=== PATIENT | female | born 1965 | race Caucasian/White ===

== ENCOUNTER 2018-10-25 07:37 | Emergency (ER) | payer SELFPAY ==
[2018-10-25 08:13] LABS: #Basophils 0.1 thou/uL (0.0-0.2); #Eosinphils 0.6 thou/uL (0.0-0.7); #Lymphocytes 2.2 thou/uL (1.20-3.40); #Monocytes 0.5 thou/uL (0.11-0.59); #Neutrophils 6.3 thou/uL (1.40-6.50); %Basophils 0.6 % (0.0-1.0); %Eosinophils 6.3 % (0.0-10.0); %Lymphocytes 22.7 % (21.0-51.0); %Monocytes 5.4 % (0.0-10.0); %Neutrophils 64.9 % (42.0-75.0); Hemoglobin 14.6 g/dL (12.0-16.0); Mean Corpuscular HGB CONC 35.1 g/dL (32.0-36.0); Mean Corpuscular Hemoglobin 34.7 pg (27.0-31.0); Platelet Count 272 thou/uL (130-400); RBC Distribution Width 11.4 % (11.5-14.5); Red Blood Cell (RBC) Count 4.19 mill/uL (4.20-5.40); White Blood Cell (WBC) Count 9.8 thou/uL (4.8-10.8)
[2018-10-25] MEDS ORDERED: methylPREDNISolone Sod Succ/PF 125 MG/2 ML VIAL ONE (08:33)
[2018-10-25] MEDS ORDERED: Azithromycin 500 MG VIAL ONE (08:33)
[2018-10-25] MEDS ORDERED: cefTRIAXone\\ROCEPHIN 1 GM VIAL ONE (08:33)
[2018-10-25 08:37] LABS: ALT (SGPT) 17 U/L (8-55); AST (SGOT) 16 U/L (5-34); Albumin 4.2 g/dL (3.5-5.0); Alkaline Phosphatase 87 U/L (40-150); Anion Gap 14 mmol/L (10-20); BUN (Urea Nitrogen) 12 mg/dL (9.8-20.1); Bilirubin, Total 0.8 mg/dL (0.2-1.2); CK (CPK) 73 U/L (29-168); Calc. Creatinine Clearance 0 mL/min (70-130); Calcium 9.3 mg/dL (7.8-10.44); Carbon Dioxide 21 mmol/L (22-29); Chloride 107 mmol/L (98-107); Estimated GFR-MDRD 75; Globulin 2.5 g/dL (2.4-3.5); Glucose 104 mg/dL (70-105); Potassium 4.3 mmol/L (3.5-5.1); Protein, Total 6.7 g/dL (6.0-8.3); Sodium 138 mmol/L (136-145)
--- NOTE | 2018-10-25 08:42 | RAD ---
PORTABLE CHEST: HISTORY: Cough. FINDINGS: The lung monge are clear. Heart and mediastinum appear normal. Vasculature normal. IMPRESSION: No acute finding. POS: OFF
[2018-10-25] MEDS ORDERED: Ondansetron PF 4 MG/2 ML Vial ONE (09:26)
== END 2018-10-25 10:25 | disposition home or self-care (01) ==
LOC: ERS 07:37
DX: J44.1 Chronic obstructive pulmonary disease with (acute) exacerbation (principal); J20.9 Acute bronchitis, unspecified; J44.0 Chronic obstructive pulmonary disease with (acute) lower respiratory infection; F17.210 Nicotine dependence, cigarettes, uncomplicated; Z71.6 Tobacco abuse counseling
CPT/HCPCS: 36415; 71045; 80053; 82550; 83605; 83880; 84484; 85025; 87040; 94640; 96365; 96367; 96375; 99406; J0456; J0696; J2405; J2930; J7620

== ENCOUNTER 2019-03-12 02:16 | Inpatient (IN) | payer SELFPAY ==
[2019-03-12 03:43] LABS: Troponin I Less than 0.010 ng/mL (< 0.028)
[2019-03-12 03:51] VITALS: BMI 34.4
[2019-03-12 07:16] LABS: Troponin I Less than 0.010 ng/mL (< 0.028)
[2019-03-12] MEDS ORDERED: predniSONE 20 MG TAB PO SCH (11:53)
[2019-03-12] MEDS ORDERED: methylPREDNISolone Sod Succ 40 MG VIAL IVP SCH (12:00)
[2019-03-12] MEDS: Ipratropium Bromide 2.5 ml Neb NEB SCH ×3 (13:01→22:37)
[2019-03-12] MEDS: Nicotine 21 MG PATCH TD SCH (18:35)
[2019-03-12] MEDS: Famotidine 20 MG TAB PO SCH (20:03)
[2019-03-12] MEDS ORDERED: FLU VACC QS2019-20(6MOS UP)/PF 60 MCG/0.5 ML SYRINGE IM ONE (21:00)
--- NOTE | 2019-03-12 23:42 | HP ---
CHIEF COMPLAINT: Shortness of breath. HISTORY OF PRESENT ILLNESS: The patient is a very pleasant 53-year-old female with a history of smoking, who presented to the hospital with worsening shortness of breath. The patient stated that she did go to the ER on Friday for shortness of breath and was given some medication, which improved her shortness of breath. However, last night her symptoms worsened, so she came in to the hospital for further evaluation. The patient states that she has been having a cough with some mild sputum. Denies any fevers or chills. Denies any chest tightness. PAST MEDICAL HISTORY: As of the following. She has a history of vertigo. Also, there is a questionable history of COPD, however, she has never had a PFT done. She does have a significant history of smoking and also has significant abnormal chest x-ray. PAST SURGICAL HISTORY: She has had left arm surgery. SOCIAL HISTORY: She smokes a pack a day. She just quit about 2 days ago. She occasionally smokes marijuana. No alcohol use and she is a full code. ALLERGIES: SHE IS ALLERGIC TO MORPHINE. SHE GETS A HEADACHE. MEDICATIONS: She is currently normal. She does not take any medications. However, she was prescribed some ProAir. PHYSICAL EXAMINATION: VITAL SIGNS: As of the following; temperature of 97.9, heart rate 82, respirations 16, O2 saturation 95% on room air, blood pressure 136/77. GENERAL: She is awake, alert, and oriented x2. Does not appear in any distress. HEENT: Normocephalic, atraumatic. No lymphadenopathy noted. Pupils are equal and reactive to light. CV: S1 and S2 present. No murmurs, rubs, or gallops. LUNGS: Clear have significant rhonchi and wheezing all over. ABDOMEN: Soft and nontender. Bowel sounds are present x2. EXTREMITIES: No edema. Pedal pulses are present x2. NEUROVASCULAR: No focal deficits noted. SKIN: No cuts, lesions, or bruises noted. FAMILY HISTORY: No history of heart disease or cancer. LABORATORY DATA: As of the following. WBCs of 12.4, hemoglobin of 14.1, hematocrit of 42.5, platelets of 277. Chemistry; sodium of 141, potassium of 3.5, BUN of 12, creatinine 0.76. Troponins x3 are negative. BNP in October was 16.6. Her chest x-ray upon reviewing appears to be hyperinflated lungs; however, chest x-ray appears to be pretty normal. ASSESSMENT AND PLAN: The patient is a very pleasant 53-year-old female who presents to the hospital with complaints of shortness of breath. 1. Acute hypoxic respiratory failure, most likely secondary to underlying chronic obstructive pulmonary disease exacerbation. I will start her on some DuoNeb and also some steroids and also prophylactic antibiotics and continue to monitor. 2. Chronic obstructive pulmonary disease exacerbation. The patient has never had a PFT, however, most likely she does due to her hyperinflated lungs and also her history of smoking. I have advised her to follow up with her primary and then she will need inhalers on discharge. 3. Mild leukocytosis, most likely secondary to her underlying symptoms currently versus that she was recently on steroids. 4. Deep venous thrombosis prophylaxis. We will put patient on Lovenox. Job ID: [id number]
[2019-03-13] MEDS: Ipratropium Bromide 2.5 ml Neb NEB SCH ×6 (02:38→22:18)
[2019-03-13] MEDS: Acetaminophen 325 MG TAB PO PRN ×3 (04:47→20:19)
[2019-03-13] MEDS: Diabetic Tussin 200 MG/10 ML UDCUP PO PRN ×2 (04:48→16:33)
[2019-03-13 05:25] LABS: #Eosinphils 0.1 thou/uL (0.0-0.7); #Lymphocytes 3.3 thou/uL (1.20-3.40); #Monocytes 0.9 thou/uL (0.11-0.59); #Neutrophils 11.2 thou/uL (1.40-6.50); %Basophils 0.3 % (0.0-1.0); %Eosinophils 0.4 % (0.0-10.0); %Lymphocytes 21.2 % (21.0-51.0); %Monocytes 5.6 % (0.0-10.0); %Neutrophils 72.5 % (42.0-75.0); Hemoglobin 13.4 g/dL (12.0-16.0); Mean Corpuscular HGB CONC 33.8 g/dL (32.0-36.0); Mean Corpuscular Hemoglobin 34.4 pg (27.0-31.0); Mean Platelet Volume 6.8 fL (7.4-10.4); Platelet Count 270 thou/uL (130-400); RBC Distribution Width 11.8 % (11.5-14.5); White Blood Cell (WBC) Count 15.4 thou/uL (4.8-10.8)
[2019-03-13 05:47] LABS: Anion Gap 11 mmol/L (10-20); BUN (Urea Nitrogen) 9 mg/dL (9.8-20.1); Calc. Creatinine Clearance 106 mL/min (70-130); Calcium 9.4 mg/dL (7.8-10.44); Carbon Dioxide 24 mmol/L (22-29); Chloride 107 mmol/L (98-107); Estimated GFR-MDRD 74; Glucose 122 mg/dL (70-105); Sodium 138 mmol/L (136-145)
[2019-03-13] MEDS: Famotidine 20 MG TAB PO SCH ×2 (08:14→20:16)
[2019-03-13] MEDS: Enoxaparin Sodium 40 MG/0.4 ML SYRINGE SC SCH (08:14)
[2019-03-13] MEDS: methylPREDNISolone Sod Succ 40 MG VIAL IVP SCH (08:15)
[2019-03-13] MEDS: Nicotine 21 MG PATCH TD SCH (17:18)
--- NOTE | 2019-03-13 18:05 | PDOC.HOSPP ---
- Subjective Encounter Date: 03/13/19 Encounter Time: 13:45 Subjective: Ms. Craft was seen today in follow-up of acute respiratory failure. She says she sontinues to feel congestion in her chest, and has trouble bringing up the phlem. - Objective Vital Signs & Weight: Vital Signs (12 hours) Temp Pulse Resp BP Pulse Ox 03/13/19 16:27 98.3 F 87 18 125/79 94 L 03/13/19 14:57 75 14 03/13/19 11:36 98.4 F 75 18 110/68 94 L 03/13/19 10:53 80 14 03/13/19 08:00 92 L 03/13/19 07:47 97.2 F L 79 18 113/75 92 L 03/13/19 07:07 85 14 97 Weight Weight 182 lb I&O: 03/12/19 03/13/19 03/14/19 06:59 06:59 06:59 Intake Total 061 667 7334 Balance 432 208 8329 Result Diagrams: 03/13/19 05:10 03/13/19 05:10 Hospitalist ROS - Medication Medications: Active Medications Generic Name Dose Route Start Last Admin Trade Name Freq PRN Reason Stop Dose Admin Acetaminophen 650 mg 03/12/19 17:31 03/13/19 10:04 Tylenol PO 650 mg Q4H PRN Administration Headache/Fever/Mild Pain (1-3) Enoxaparin Sodium 40 mg 03/13/19 09:00 03/13/19 08:14 Lovenox SC 40 mg 0900 MELI Administration Famotidine 20 mg 03/12/19 21:00 03/13/19 08:14 Pepcid PO 20 mg BID MELI Administration Guaifenesin 100 mg 03/13/19 04:37 03/13/19 16:33 Robitussin Sf PO 100 mg Q8H PRN Administration Cough Ipratropium [place] 2.5 ml 03/12/19 14:30 03/13/19 14:57 Atrovent NEB 2.5 ml [id number] MELI Administration Levofloxacin 750 mg 03/12/19 12:00 03/13/19 11:24 Levaquin PO 750 mg 1200 MELI Administration Methylprednisolone Sodium Succinate 40 mg 03/13/19 09:00 03/13/19 08:15 Solu-Medrol IVP 40 mg DAILY MELI Administration Nicotine 21 mg 10/04/19 18:00 03/13/19 17:18 Nicoderm Patch TD 21 mg 1800 MELI Administration - Exam Eye: PERRL, anicteric sclera Heart: RRR, no murmur, no gallops, no rubs, normal peripheral pulses Respiratory: no rales, no ronchi, wheezes (bilateral wheezing, mild) Gastrointestinal: soft, non-tender, non-distended, normal bowel sounds, no palpable masses, no hepatomegaly, no splenomegaly Extremities: no cyanosis, no clubbing, no edema Psychiatric: normal affect, normal behavior, A&O x 3 Hosp A/P (1) Acute and chronic respiratory failure Code(s): J96.20 - ACUTE AND CHR RESP FAILURE, UNSP W HYPOXIA OR HYPERCAPNIA Status: Acute (2) Tobacco abuse Code(s): Z72.0 - TOBACCO USE Status: Acute - Plan * Acute on chronic respiratory failure- due to presumed COPD- continue Duonebs, steroids, and Levaquin * Will re-assess in [place] AM * Discussed smoking cessation * Anticipate home tomorrow
[2019-03-14] MEDS: Ipratropium Bromide 2.5 ml Neb NEB SCH ×4 (02:29→13:26)
[2019-03-14] MEDS: Acetaminophen 325 MG TAB PO PRN (06:10)
[2019-03-14] MEDS: Enoxaparin Sodium 40 MG/0.4 ML SYRINGE SC SCH (08:36)
[2019-03-14] MEDS: Famotidine 20 MG TAB PO SCH (08:36)
[2019-03-14] MEDS: methylPREDNISolone Sod Succ 40 MG VIAL IVP SCH (08:38)
[2019-03-14 11:21] VITALS: BP 123/85; TEMP 98.2
--- NOTE | 2019-03-14 11:53 | PDOC.HOSPP ---
- Subjective Encounter Date: 03/14/19 Encounter Time: 11:52 Subjective: Ms. Craft was seen today in follow-up of COPD exacerbation. She says she is feeling much better. She does not have any new complaints. - Objective Vital Signs & Weight: Vital Signs (12 hours) Temp Pulse Resp BP Pulse Ox 03/14/19 11:19 98.2 F 81 18 123/85 97 03/14/19 10:28 79 16 96 03/14/19 08:00 93 L 03/14/19 07:23 97.6 F 86 13 115/79 93 L 03/14/19 06:31 83 16 95 03/14/19 02:29 74 14 96 Weight Weight 182 lb I&O: 03/13/19 03/14/19 03/15/19 06:59 06:59 06:59 Intake Total 240 1615 Balance 240 1615 Result Diagrams: 03/13/19 05:10 03/13/19 05:10 Hospitalist ROS - Medication Medications: Active Medications Generic Name Dose Route Start Last Admin Trade Name Freq PRN Reason Stop Dose Admin Acetaminophen 650 mg 03/12/19 17:31 03/14/19 06:10 Tylenol PO 650 mg Q4H PRN Administration Headache/Fever/Mild Pain (1-3) Enoxaparin Sodium 40 mg 03/13/19 09:00 03/14/19 08:36 Lovenox SC 40 mg 0900 MELI Administration Famotidine 20 mg 03/12/19 21:00 03/14/19 08:36 Pepcid PO 20 mg BID MELI Administration Guaifenesin 100 mg 03/13/19 04:37 03/13/19 16:33 Robitussin Sf PO 100 mg Q8H PRN Administration Cough Ipratropium [place] 2.5 ml 03/12/19 14:30 03/14/19 10:28 Atrovent NEB 2.5 ml [id number] MELI Administration Levofloxacin 750 mg 03/12/19 12:00 03/14/19 11:14 Levaquin PO 750 mg 1200 MELI Administration Methylprednisolone Sodium Succinate 40 mg 03/13/19 09:00 03/14/19 08:38 Solu-Medrol IVP 40 mg DAILY MELI Administration Nicotine 21 mg 03/12/19 18:00 03/13/19 17:18 Nicoderm Patch TD 21 mg 1800 MELI Administration - Exam Eye: PERRL, anicteric sclera Heart: RRR, no murmur, no gallops, no rubs, normal peripheral pulses Respiratory: CTAB, no wheezes, no rales, no ronchi, normal chest expansion, no tachypnea, normal percussion Gastrointestinal: soft, non-tender, non-distended, normal bowel sounds, no palpable masses, no hepatomegaly, no splenomegaly, no bruit Extremities: no cyanosis, no clubbing, no edema Hosp A/P (1) Acute and chronic respiratory failure Code(s): J96.20 - ACUTE AND CHR RESP FAILURE, UNSP W HYPOXIA OR HYPERCAPNIA Status: Acute (2) Tobacco abuse Code(s): Z72.0 - TOBACCO USE Status: Acute - Plan * Acute on chronic respiratory failure- due to presumed COPD- much improved * Discussed smoking cessation * Home today
--- NOTE | 2019-03-14 13:26 | DIS ---
DATE OF ADMISSION: 03/12/2019 DATE OF DISCHARGE: 03/14/2019 The patient currently does not have a primary care physician. DISCHARGE DISPOSITION: Home. DISCHARGE DIAGNOSES: 1. Acute on chronic respiratory failure with hypoxemia. 2. Presumed chronic obstructive pulmonary disease exacerbation. 3. Tobacco abuse. DISCHARGE MEDICATIONS: Include; 1. Prednisone 20 mg one p.o. daily for 5 days. 2. Levaquin 500 mg p.o. daily for 5 days. 3. Atrovent nebs q.i.d. as needed. 4. Proventil inhaler 2 puffs q.6 as needed. 5. Also prescription was written for Symbicort inhaler 80/4.5 one puff twice daily and hopefully, the patient can obtain this in the outpatient setting. CODE STATUS: Full code. ALLERGIES: MORPHINE. HOSPITAL COURSE: Ms. Craft is a pleasant 53-year-old female, who presented to the emergency room complaining of cough and shortness of breath. Chest x-ray was negative and it was felt that she likely has COPD. She has a long history of smoking. She was treated with antibiotics, DuoNeb, and steroids and improved over the course of the next couple of days. It is recommended that she get an outpatient pulmonary function test. She was also counseled on the need to stop smoking, and plan is to establish care at a clinic in [place] and has been recommended to follow up there within 1 week. Job ID: [id number]
== END 2019-03-14 14:32 | disposition home or self-care (01) | DRG 189 ==
LOC: ERS 02:16 → 2SW 03:26 → OBSVTOIN 03:26 → T4-B 19:39
PROVIDERS: ADMIT Hospitalist; ATTEND Hospitalist
DX: J96.21 Acute and chronic respiratory failure with hypoxia (principal); J44.1 Chronic obstructive pulmonary disease with (acute) exacerbation; D72.829 Elevated white blood cell count, unspecified; Z87.891 Personal history of nicotine dependence; Z88.5 Allergy status to narcotic agent; Z71.6 Tobacco abuse counseling
CPT/HCPCS: 36415; 80048; 84484; 85025; 87070; 87205; 87633; 87798; 94640; J1650; J2920; J7620

== ENCOUNTER 2020-10-11 14:35 | Emergency (ER) | payer SELFPAY ==
[2020-10-11] MEDS ORDERED: predniSONE 20 MG TAB ONE (17:43)
[2020-10-11] MEDS ORDERED: Ketorolac Tromethamine 30 MG/ML VIAL ONE (17:43)
[2020-10-11] MEDS ORDERED: Albuterol 200 PUFF (6.7GM INHALER) ONE (17:53)
[2020-10-11 17:59] LABS: ALT (SGPT) 33 U/L (8-55); AST (SGOT) 25 U/L (5-34); Alkaline Phosphatase 110 U/L (40-110); Anion Gap 17 mmol/L (10-20); BUN (Urea Nitrogen) 10 mg/dL (9.8-20.1); Bilirubin, Total 1.2 mg/dL (0.2-1.2); CK (CPK) 38 U/L (29-168); Calc. Creatinine Clearance 0 mL/min (70-130); Calcium 9.8 mg/dL (7.8-10.44); Carbon Dioxide 23 mmol/L (22-29); Chloride 104 mmol/L (98-107); Globulin 3.4 g/dL (2.4-3.5); Glucose 104 mg/dL (70-105); Potassium 4.6 mmol/L (3.5-5.1); Protein, Total 7.4 g/dL (6.0-8.3); Sodium 139 mmol/L (136-145)
[2020-10-11 18:00] LABS: #Eosinphils 0.1 thou/uL (0.0-0.7); #Lymphocytes 2.3 thou/uL (1.20-3.40); #Monocytes 0.6 thou/uL (0.11-0.59); #Neutrophils 5.4 thou/uL (1.40-6.50); %Basophils 0.6 % (0.0-1.0); %Eosinophils 0.9 % (0.0-10.0); %Lymphocytes 27.6 % (21.0-51.0); %Monocytes 7.2 % (0.0-10.0); %Neutrophils 63.7 % (42.0-75.0); Hemoglobin 11.9 g/dL (12.0-16.0); Mean Corpuscular HGB CONC 33.2 g/dL (32.0-36.0); Mean Corpuscular Hemoglobin 33.2 pg (27.0-31.0); Mean Platelet Volume 6.4 fL (7.4-10.4); Platelet Count 508 thou/uL (130-400); RBC Distribution Width 11.6 % (11.5-14.5); Red Blood Cell (RBC) Count 3.58 mill/uL (4.20-5.40); White Blood Cell (WBC) Count 8.5 thou/uL (4.8-10.8)
== END 2020-10-11 18:49 | disposition home or self-care (01) ==
LOC: ERS 14:35
DX: M79.622 Pain in left upper arm (principal); M79.621 Pain in right upper arm; J44.1 Chronic obstructive pulmonary disease with (acute) exacerbation; F17.210 Nicotine dependence, cigarettes, uncomplicated; Z79.899 Other long term (current) drug therapy
CPT/HCPCS: 36415; 71045; 80053; 82550; 84484; 85025; 93005; 96372; J1885; J7512

== ENCOUNTER 2021-05-07 12:05 | Outpatient (CLI) | payer OTHER | END 2021-05-07 12:06 | disposition home or self-care (01) | LOC: BICMRI 12:05 | PROVIDERS: ATTEND Orthopaedic Surgery | DX: M47.812 Spondylosis without myelopathy or radiculopathy, cervical region (principal); M48.02 Spinal stenosis, cervical region | CPT/HCPCS: 72141 ==

== ENCOUNTER 2021-06-20 15:30 | Outpatient (CLI) | payer OTHER ==
[2021-06-20 16:30] LABS: Hemoglobin 8.2 g/dL (12.0-15.5); Mean Corpuscular HGB CONC 29.3 g/dL (32.0-36.0); Mean Corpuscular Hemoglobin 29.2 pg (27.0-33.0); Mean Corpuscular Volume 99.6 fl (81.6-98.3); Mean Platelet Volume 8.5 fl (7.4-10.4); Platelet Count 557 10x3/uL (150-450); Red Blood Cell (RBC) Count 2.81 10x6/uL (3.90-5.03); White Blood Cell (WBC) Count 8.9 10x3/uL (3.5-10.5)
[2021-06-20 16:41] LABS: Anion Gap 14 mmol/L (10-20); BUN (Urea Nitrogen) 11 mg/dL (9.8-20.1); Calc. Creatinine Clearance 0 mL/min (70-130); Calcium 8.8 mg/dL (7.8-10.44); Carbon Dioxide 26 mmol/L (22-29); Chloride 100 mmol/L (98-107); Glucose 124 mg/dL (70-105); Potassium 3.9 mmol/L (3.5-5.1); Sodium 136 mmol/L (136-145)
[2021-06-21 13:39] LABS: SARS-CoV-2 PCR by NAA Not Detected (NotDetected)
== END 2021-06-20 15:31 | disposition home or self-care (01) ==
LOC: LABBT 15:30
PROVIDERS: ATTEND Neurological Surgery
DX: Z01.818 Encounter for other preprocedural examination (principal); M47.12 Other spondylosis with myelopathy, cervical region; Z20.822 Contact with and (suspected) exposure to COVID-19
CPT/HCPCS: 80048; 85027; 93005; 93010; U0003; U0005

== ENCOUNTER 2021-06-20 15:30 | Inpatient (IN) | payer OTHER ==
[2021-06-15 15:02] VITALS: BMI 28.3
[2021-06-25] MEDS ORDERED: Fentanyl 100 MCG/2 ML VIAL ONE ×6 (07:00→12:46)
[2021-06-25] MEDS ORDERED: Dexmedetomidine 200 MCG/2 ML VIAL ONE (07:01)
[2021-06-25] MEDS ORDERED: ceFAZolin 2 GM/DEX 5% 100 ML BAG ONE (07:31)
[2021-06-25] MEDS ORDERED: Famotidine/PF 20 mg/2ml Vial ONE (08:12)
[2021-06-25] MEDS ORDERED: PROPOFOL 200 MG/20 ML VIAL ONE (08:50)
[2021-06-25] MEDS ORDERED: ePHEDrine 50 MG/ML VIAL ONE (08:50)
[2021-06-25] MEDS ORDERED: Rocuronium Bromide 10 MG/ML (10ML VIAL) ONE (08:50)
[2021-06-25] MEDS ORDERED: Lidocaine 1% PF 5 ML VIAL ONE (08:50)
[2021-06-25] MEDS ORDERED: Ondansetron PF 4 MG/2 ML Vial ONE (08:50)
[2021-06-25] MEDS ORDERED: Dexamethasone 20 MG/5 ML VIAL ONE (08:50)
[2021-06-25] MEDS ORDERED: Glycopyrrolate 0.2 MG/ML 5 ML SYRINGE ONE (08:50)
[2021-06-25] MEDS ORDERED: PHENYLEPHRINE-NS 100 MCG/ML 10 ML SYRINGE ONE (08:50)
[2021-06-25] MEDS ORDERED: Ondansetron HCl/PF 4 MG/2 ML Vial IVP PRN (10:14)
[2021-06-25] MEDS ORDERED: Promethazine HCl 25 MG/ML VIAL IM PRN ×2 (10:14→14:30)
[2021-06-25] MEDS ORDERED: Promethazine HCl 25 MG/ML VIAL IVPB PRN (10:14)
[2021-06-25] MEDS ORDERED: HYDROmorphone 0.5 MG/0.5 ML SYRINGE ONE (10:33)
[2021-06-25] MEDS ORDERED: Midazolam HCl 2 mg/2 ml Vial ONE (10:40)
[2021-06-25] MEDS ORDERED: Cyclobenzaprine 10 MG TAB ONE (11:39)
[2021-06-25] MEDS ORDERED: Albuterol Sulfate 1.25 MG/3 ML NEB NEB PRN (13:55)
[2021-06-25] MEDS ORDERED: Ipratropium Bromide 2.5 ml Neb NEB PRN (13:56)
[2021-06-25] MEDS ORDERED: Ondansetron PF 4 MG/2 ML Vial IVP PRN (14:30)
[2021-06-25] MEDS ORDERED: diphenhydrAMINE 25 MG CAP PO PRN (14:30)
[2021-06-25] MEDS ORDERED: Mag-Al 1200 mg/1200 mg/30 ML UDCUP PO PRN (14:30)
[2021-06-25] MEDS ORDERED: HYDROcodone/Acetaminophen 10/325 mg Tablet PO PRN (14:30)
[2021-06-25] MEDS ORDERED: diphenhydrAMINE 50 MG/ML VIAL IVP PRN (14:30)
[2021-06-25] MEDS ORDERED: Promethazine 25 MG TAB PO PRN (14:30)
[2021-06-25] MEDS ORDERED: Promethazine HCl 12.5 MG SUPP PR PRN (14:30)
[2021-06-25] MEDS ORDERED: traMADol HCl 50 MG TAB PO PRN ×2 (14:30)
[2021-06-25] MEDS ORDERED: Fentanyl 100 MCG/2 ML VIAL SLOW IVP PRN ×2 (14:32→14:33)
[2021-06-25] MEDS: HYDROcodone/Acetaminophen 10/325 mg Tablet PO PRN ×3 (14:47→21:55)
[2021-06-25] MEDS: Cyclobenzaprine 10 MG TAB PO PRN (14:47)
[2021-06-25] MEDS: Sodium Chloride 0.9% 1,000 ML IV SCH (14:48)
[2021-06-25] MEDS: ceFAZolin 2 GM/Dextrose 50 ML 2 GM in Premix Bag 1 BAG IVPB SCH (17:25)
[2021-06-25] MEDS: Polyethylene Glycol 3350 17 GM Packet PO SCH (21:54)
[2021-06-26] MEDS: ceFAZolin 2 GM/Dextrose 50 ML 2 GM in Premix Bag 1 BAG IVPB SCH (01:10)
[2021-06-26] MEDS: HYDROcodone/Acetaminophen 10/325 mg Tablet PO PRN ×2 (03:01→07:30)
[2021-06-26] MEDS: Sodium Chloride 0.9% 1,000 ML IV SCH (05:25)
[2021-06-26] MEDS: Cyclobenzaprine 10 MG TAB PO PRN (07:29)
[2021-06-26 07:32] VITALS: TEMP 97.8
[2021-06-26] MEDS ORDERED: Nicotine 7 MG PATCH TOP SCH (09:00)
[2021-06-26] MEDS: Polyethylene Glycol 3350 17 GM Packet PO SCH (09:51)
[2021-06-26 11:26] VITALS: BP 118/73
== END 2021-06-26 11:42 | disposition home or self-care (01) | DRG 472 ==
LOC: SURG A 06-25 06:26 → T4-A 06-25 13:35 → EDSTATUS 06-25 15:30
PROVIDERS: ADMIT Neurological Surgery; ATTEND Neurological Surgery
PROC: 0RG20A0 Fusion of 2 or more Cervical Vertebral Joints with Interbody Fusion Device, Anterior Approach, Anterior Column, Open Approach (ICD-10-PCS; principal; 2021-06-25)
PROC: 0RB30ZZ Excision of Cervical Vertebral Disc, Open Approach (ICD-10-PCS; 2021-06-25)
DX: M48.02 Spinal stenosis, cervical region (principal); M47.12 Other spondylosis with myelopathy, cervical region; M50.023 Cervical disc disorder at C6-C7 level with myelopathy; M25.78 Osteophyte, vertebrae; Z20.822 Contact with and (suspected) exposure to COVID-19; J44.9 Chronic obstructive pulmonary disease, unspecified; F17.210 Nicotine dependence, cigarettes, uncomplicated; D64.9 Anemia, unspecified; Z88.5 Allergy status to narcotic agent; Z79.51 Long term (current) use of inhaled steroids; Z79.899 Other long term (current) drug therapy
CPT/HCPCS: 36415; 76000; 86850; 86900; 86901; 86922; C1713; C1776; J0690; J1100; J1170; J2250; J2405; J2704; J3010; J3490; J7050; S0028

== ENCOUNTER 2021-07-11 09:37 | Outpatient (CLI) | payer OTHER | END 2021-07-11 09:38 | disposition home or self-care (01) | LOC: TBSIIMAG 09:37 | PROVIDERS: ATTEND Neurological Surgery | DX: M47.12 Other spondylosis with myelopathy, cervical region (principal); Z98.1 Arthrodesis status | CPT/HCPCS: 72040 ==

== ENCOUNTER 2021-10-01 11:15 | Outpatient (CLI) | payer MEDICARE, OTHER | END 2021-10-01 11:16 | disposition home or self-care (01) | LOC: ULT 11:15 | PROVIDERS: ATTEND Orthopaedic Surgery | DX: R22.43 Localized swelling, mass and lump, lower limb, bilateral (principal) | CPT/HCPCS: 93970 ==

== ENCOUNTER 2023-01-03 14:54 | Outpatient (CLI) | payer OTHER | END 2023-01-03 14:55 | disposition home or self-care (01) | LOC: BICMAMMO 14:54 | PROVIDERS: ATTEND Family Medicine | DX: Z12.31 Encounter for screening mammogram for malignant neoplasm of breast (principal) | CPT/HCPCS: 77063; 77067 ==

== ENCOUNTER 2023-07-08 00:19 | Inpatient (IN) | payer OTHER ==
[2023-07-09] MEDS ORDERED: Ipratropium/Albuterol 3 ML NEB ONE ×3 (00:55→13:21)
[2023-07-09 01:50] LABS: Troponin I Less than 0.010 ng/mL (< 0.028)
[2023-07-09] MEDS ORDERED: Benzocaine/Menthol 1 LOZ LOZ PO PRN (01:59)
[2023-07-09] MEDS ORDERED: Nicotine 14 MG PATCH TD PRN (02:00)
[2023-07-09] MEDS ORDERED: Ondansetron ODT 4 MG TAB PO PRN (02:00)
[2023-07-09] MEDS ORDERED: Acetaminophen 325 MG TAB PO PRN (02:00)
[2023-07-09 04:04] LABS: #Monocytes 0.1 thou/uL (0.11-0.59); #Neutrophils 3.4 thou/uL (1.40-6.50); %Basophils 0.3 % (0.0-1.0); %Lymphocytes 5.1 % (21.0-51.0); %Monocytes 1.4 % (0.0-10.0); %Neutrophils 92.7 % (42.0-75.0); Hematocrit 36.9 % (36.0-47.0); Hemoglobin 11.6 g/dL (12.0-16.0); Mean Corpuscular HGB CONC 31.4 g/dL (32.0-36.0); Mean Corpuscular Volume 101.9 fl (78.0-98.0); Platelet Count 224 10x3/uL (130-400); RBC Distribution Width 13.4 % (11.5-14.5); Red Blood Cell (RBC) Count 3.62 mill/uL (4.20-5.40); White Blood Cell (WBC) Count 3.7 10x3/uL (4.8-10.8)
[2023-07-09 04:25] LABS: Anion Gap 13 mmol/L (10-20); BUN (Urea Nitrogen) 7 mg/dL (9.8-20.1); Calc. Creatinine Clearance 118 mL/min (70-130); Calcium 8.5 mg/dL (7.8-10.44); Carbon Dioxide 23 mmol/L (22-29); Chloride 108 mmol/L (98-107); Estimated GFR 96; Glucose 170 mg/dL (70-105); Potassium 3.9 mmol/L (3.5-5.1); Sodium 140 mmol/L (136-145)
[2023-07-09 04:30] LABS: Troponin I Less than 0.010 ng/mL (< 0.028)
[2023-07-09] MEDS: Guaifenesin DM 100-10/5 ML UDCUP PO PRN ×3 (04:47→23:06)
[2023-07-09] MEDS: Ipratropium/Albuterol 3 ML NEB NEB SCH ×3 (07:35→19:28)
[2023-07-09] MEDS ORDERED: methylPREDNISolone Sod Succ 40 MG VIAL ONE (10:02)
[2023-07-09] MEDS ORDERED: Oseltamivir 75 MG CAP ONE (10:02)
[2023-07-09] MEDS ORDERED: Famotidine 20 MG TAB ONE (10:02)
[2023-07-09] MEDS ORDERED: Acetaminophen 325 MG TAB ONE (10:11)
[2023-07-09] MEDS: methylPREDNISolone Sod Succ 40 MG VIAL IVP SCH ×2 (10:16→23:07)
[2023-07-09] MEDS: Famotidine 20 MG TAB PO SCH ×2 (10:16→23:06)
[2023-07-09] MEDS: Oseltamivir 75 MG CAP PO SCH ×2 (10:16→23:06)
[2023-07-09] MEDS ORDERED: Albuterol 2.5 MG (3 mL) NEB NEB PRN (13:07)
[2023-07-09 13:49] VITALS: BMI 29.5
[2023-07-10] MEDS: Ipratropium/Albuterol 3 ML NEB NEB SCH ×5 (00:01→22:00)
[2023-07-10] MEDS: Oseltamivir 75 MG CAP PO SCH ×2 (08:19→20:18)
[2023-07-10] MEDS: Famotidine 20 MG TAB PO SCH ×2 (08:19→20:18)
[2023-07-10] MEDS: methylPREDNISolone Sod Succ 40 MG VIAL IVP SCH ×2 (08:20→20:18)
[2023-07-10] MEDS ORDERED: Ketorolac Tromethamine 30 MG (1 mL) VIAL IVP PRN (09:34)
[2023-07-10] MEDS ORDERED: Ketorolac Tromethamine 30 MG (1 mL) VIAL IVP SCH (09:45)
[2023-07-10] MEDS: Guaifenesin DM 100-10/5 ML UDCUP PO PRN (20:18)
[2023-07-11] MEDS: Guaifenesin DM 100-10/5 ML UDCUP PO PRN ×2 (06:13→08:48)
[2023-07-11] MEDS: Ipratropium/Albuterol 3 ML NEB NEB SCH ×2 (06:30→12:12)
[2023-07-11 06:33] LABS: #Monocytes 0.4 thou/uL (0.11-0.59); #Neutrophils 6.6 thou/uL (1.40-6.50); %Lymphocytes 12.7 % (21.0-51.0); %Neutrophils 81.8 % (42.0-75.0); Hematocrit 39.7 % (36.0-47.0); Hemoglobin 12.9 g/dL (12.0-16.0); Mean Corpuscular HGB CONC 32.5 g/dL (32.0-36.0); Mean Corpuscular Hemoglobin 31.9 pg (27.0-31.0); Mean Corpuscular Volume 98.3 fl (78.0-98.0); Mean Platelet Volume 9.2 fL (7.4-10.4); Platelet Count 288 10x3/uL (130-400); RBC Distribution Width 13.5 % (11.5-14.5); Red Blood Cell (RBC) Count 4.04 mill/uL (4.20-5.40); White Blood Cell (WBC) Count 8.1 10x3/uL (4.8-10.8)
[2023-07-11 07:00] LABS: Anion Gap 14 mmol/L (10-20); BUN (Urea Nitrogen) 14 mg/dL (9.8-20.1); Calc. Creatinine Clearance 101 mL/min (70-130); Carbon Dioxide 25 mmol/L (22-29); Chloride 103 mmol/L (98-107); Estimated GFR 91; Glucose 120 mg/dL (70-105); Potassium 4.6 mmol/L (3.5-5.1); Sodium 137 mmol/L (136-145)
[2023-07-11 08:14] VITALS: BP 107/68; TEMP 97.9
[2023-07-11] MEDS: Famotidine 20 MG TAB PO SCH (08:50)
[2023-07-11] MEDS: Oseltamivir 75 MG CAP PO SCH (08:50)
[2023-07-11] MEDS: methylPREDNISolone Sod Succ 40 MG VIAL IVP SCH (08:52)
== END 2023-07-11 13:10 | disposition home or self-care (01) | DRG 194 ==
LOC: ERS 00:19 → ERHOLD 07-09 00:48 → 2NO 07-09 00:49 → T4-A 07-10 18:02
PROVIDERS: ADMIT Student in an Organized Health Care Education/Training Program; ATTEND Family Medicine
DX: J10.1 Influenza due to other identified influenza virus with other respiratory manifestations (principal); J44.1 Chronic obstructive pulmonary disease with (acute) exacerbation; R42 Dizziness and giddiness; F17.210 Nicotine dependence, cigarettes, uncomplicated; R10.32 Left lower quadrant pain; Z88.5 Allergy status to narcotic agent; Z79.899 Other long term (current) drug therapy
CPT/HCPCS: 36415; 80048; 84484; 85025; 93970; 94640; J1885; J2920; J7620

== ENCOUNTER 2025-02-03 10:51 | Outpatient (CLI) | payer OTHER | END 2025-02-03 10:52 | disposition home or self-care (01) | LOC: BICCT 10:51 | PROVIDERS: ATTEND Internal Medicine | DX: Z12.2 Encounter for screening for malignant neoplasm of respiratory organs (principal); J44.9 Chronic obstructive pulmonary disease, unspecified; Z87.891 Personal history of nicotine dependence | CPT/HCPCS: 71271 ==